=== PATIENT | female | born 1960 | race Caucasian/White ===

== ENCOUNTER 2018-01-12 19:32 | Emergency (ER) | payer OTHER ==
[~2018-01-12] VITALS: Ht 172.7 cm; Wt 127.3 kg
[~2018-01-12 19:32] MED LIST: FLEXERIL PO; IBUPROFEN 800800 M1 PO; LOPRESSOR; LOPRESSOR 50 MG50 M1; NAPROSYN375 MG PO; NORCO 5-325 TA1 EAC1 PO; NORCO 5-325 TA1 EACH PO; PAXIL40 MG; TOBRADEX ST EYE5 ML OP; ZOFRAN4 MG PO
[2018-01-12 20:10] LABS: ABSOLUTE EOSINOPHILS 0.1 thou/uL (0.0-0.7); ABSOLUTE LYMPHOCYTES 2.7 thou/uL (0.8-5.3); ABSOLUTE MONOCYTES 0.5 thou/uL (0.0-1.2); ABSOLUTE NEUTROPHILS 7.5 thou/uL (1.6-8.1); BASOPHILS 0.2 %; EOSINOPHILS 0.9 %; HEMATOCRIT 42.5 % (37.0-47.0); HEMOGLOBIN 14.2 gm/dL (12.0-15.0); MCH 31.2 pg (26.0-34.0); MCHC 33.5 g/dL (28.0-37.0); MCV 93.2 fL (80.0-100.0); MONOCYTES 4.9 %; MPV 9.2 fl. (7.2-11.1); NUCLEATED RBCS 0 /100WBC; PLATELET COUNT* 245 thou/uL (150-400); RBC 4.56 mil/uL (4.20-5.00); RDW-CV 13.7 % (10.5-14.5); WBC 10.9 thou/uL (4.0-11.0)
[2018-01-12 20:22] LABS: ANION GAP 4 mmol/L (7-16); BUN 15 mg/dL (7-18); CHLORIDE 107 mmol/L (98-107); CO2 26 mmol/L (21-32); CREATININE 0.8 mg/dL (0.6-1.3); GLUCOSE 147 mg/dL (70-99); POTASSIUM 3.9 mmol/L (3.5-5.1); SODIUM 137 mmol/L (136-145)
[2018-01-12 20:29] LABS: ALBUMIN 3.3 g/dL (3.4-5.0); ALKALINE PHOSPHATASE 82 U/L (46-116); SGOT 15 U/L (15-37); SGPT 25 U/L (30-65); TOTAL BILIRUBIN 0.2 mg/dL (<0.1-1.0); TOTAL PROTEIN 6.7 g/dL (6.4-8.2); TROPONIN-I LEVEL <0.06 ng/mL (<0.06)
[2018-01-12] MEDS ORDERED: MOTION RELIEF25 MG PO (20:52)
[2018-01-12] MEDS ORDERED: ZOFRAN ODT4 MG PO (20:52)
[2018-01-12 21:25] VITALS: BP 127/56
--- NOTE | 2018-01-15 11:08 | EKG ---
[place] [address] ELECTROCARDIOGRAM REPORT Name: MARK FELIPE Room: [facility]#: [id number] Admission: 01/12/18 Attend Phys: Discharge: 01/12/18 Date of : 62 Report #: [id number] THIS REPORT FOR: //name// [facility] ED Test Date: 2018-01-12 Test Time: 19:38:23 Pat Name: MARK FELIPE Department: Room: Gender: F Patient Assessment Coordinator: JOSE : 1960 Requested By: Anni Tobias Order Number: [id number] MD: Jair Patel Measurements Intervals [place] Rate: 80 P: 71 [place]: 162 QRS: 51 QRSD: 91 T: 32 QT: 413 QTc: 477 Interpretive Statements Sinus rhythm Low voltage, precordial leads Borderline prolonged QT interval Compared to ECG 03/24/2011 10:09:46 Low QRS voltage now present Sinus bradycardia no longer present Electronically Signed On 01-15-2018 11:07:56 CDT by Jair Patel [email or web address] <ELECTRONICALLY SIGNED> By: Jair Patel MD, [facility] 01/15/18 1107 37 37 Jair Patel MD, [facility] /EPI
== END 2018-01-12 21:34 | disposition home or self-care (01) ==
LOC: M.ERS 19:32
PROVIDERS: Emergency Medicine
DX: R42 Dizziness and giddiness (principal); Z88.5 Allergy status to narcotic agent; Z90.49 Acquired absence of other specified parts of digestive tract; Z90.710 Acquired absence of both cervix and uterus

== ENCOUNTER 2019-03-25 06:03 | Emergency (ER) | payer OTHER ==
[~2019-03-25] VITALS: Ht 162.6 cm; Wt 117.9 kg
[~2019-03-25 06:03] MED LIST changes: +MOTION RELIEF25 MG PO; +ZOFRAN ODT4 MG PO
[2019-03-25 06:29] LABS: ABSOLUTE BASOPHILS 0.1 thou/uL (0.0-0.2); ABSOLUTE EOSINOPHILS 0.1 thou/uL (0.0-0.7); ABSOLUTE LYMPHOCYTES 2.7 thou/uL (0.8-5.3); ABSOLUTE MONOCYTES 0.8 thou/uL (0.0-1.2); ABSOLUTE NEUTROPHILS 7.2 thou/uL (1.6-8.1); BASOPHILS 1.4 %; HEMATOCRIT 43.5 % (37.0-47.0); HEMOGLOBIN 14.7 gm/dL (12.0-15.0); LYMPHOCYTES 24.7 %; MCH 31.7 pg (26.0-34.0); MCHC 33.9 g/dL (28.0-37.0); MCV 93.6 fL (80.0-100.0); MONOCYTES 7.1 %; MPV 9.5 fl. (7.2-11.1); NUCLEATED RBCS 0 /100WBC; PLATELET COUNT* 244 thou/uL (150-400); POLYS 65.8 %; RBC 4.65 mil/uL (4.20-5.00); RDW-CV 13.5 % (10.5-14.5); WBC 10.9 thou/uL (4.0-11.0)
[2019-03-25 06:39] LABS: ANION GAP 9 mmol/L (7-16); BUN 13 mg/dL (7-18); CALCIUM 8.4 mg/dL (8.5-10.1); CHLORIDE 103 mmol/L (98-107); CO2 26 mmol/L (21-32); CREATININE 0.8 mg/dL (0.6-1.3); GLUCOSE 129 mg/dL (70-99); SODIUM 138 mmol/L (136-145)
[2019-03-25 06:51] LABS: ALBUMIN 3.6 g/dL (3.4-5.0); ALKALINE PHOSPHATASE 82 U/L (46-116); LIPASE 126 U/L (73-393); NT-PRO BRAIN NAT PEPTIDE 140 pg/mL (<300); SGOT 13 U/L (15-37); SGPT 23 U/L (30-65); TOTAL BILIRUBIN 0.3 mg/dL (<0.1-1.0); TOTAL PROTEIN 7.3 g/dL (6.4-8.2); TROPONIN-I LEVEL <0.06 ng/mL (<0.06)
[2019-03-25] MEDS ORDERED: ALBUTEROL2.5 MG/31 INH (07:54)
[2019-03-25] MEDS ORDERED: PREDNISONE 20 M20 MG PO (07:54)
[2019-03-25 08:02] VITALS: BP 125/86
--- NOTE | 2019-03-26 14:53 | EKG ---
[place] [address] ELECTROCARDIOGRAM REPORT Name: MARK FELIPE Room: [facility]#: [id number] Admission: 03/25/19 Attend Phys: Discharge: 03/25/19 Date of : 62 Report #: [id number] THIS REPORT FOR: //name// [facility] ED Test Date: 2019-03-25 Test Time: 06:10:00 Pat Name: MARK FELIPE Department: Room: Gender: F Photogeologist: TEJAS : 1960 Requested By: Anni Tobias Order Number: [id number] MD: Rock Bauer Measurements Intervals [place] Rate: 91 P: 51 [place]: 170 QRS: 45 QRSD: 136 T: 7 QT: 366 QTc: 451 Interpretive Statements Sinus rhythm Right bundle branch block Baseline wander in lead(s) I,II,III,aVR,aVL,V2 Compared to ECG 01/12/2018 19:38:23 Right bundle-branch block now present Electronically Signed On 03-26-2019 14:53:39 CDT by Rock Bauer [email or web address] <ELECTRONICALLY SIGNED> By: Rock Bauer MD, [facility] 03/26/19 1453 0610 0610 Rock Bauer MD, [facility] /EPI
== END 2019-03-25 08:03 | disposition home or self-care (01) ==
LOC: M.ERS 06:03
PROVIDERS: Emergency Medicine
DX: J40 Bronchitis, not specified as acute or chronic (principal); R09.02 Hypoxemia; Z88.5 Allergy status to narcotic agent; Z90.710 Acquired absence of both cervix and uterus; Z98.890 Other specified postprocedural states